=== PATIENT | male | born 1985 | race American Indian/Alaskan Native ===

== ENCOUNTER 2017-08-14 17:44 | Emergency (ER) | payer MEDICARE ==
--- NOTE | 2017-08-14 18:15 | Emergency Department Report ---
Chief Complaint: Psych Stated Complaint: SUICIDAL THOUGHTS Time Seen by Provider: 08/14/17 18:15 - HPI History of Present Illness: Patient with suicidal thoughts history of same with previous psych admissions. States he feels like hurting people occasionally hear voices that he wants to run himself into a wall. Denies any medical complaints: denies any chest pain headache fever abdominal pain complaints. States he's been compliant with his IM long-acting antipsychotic that he gets monthly. but it's not helping, Denies any alcohol or drug use. - Exam Vital Signs: Vital Signs 08/14/17 17:47 Temperature 98.3 F Pulse Rate 87 Respiratory 18 Rate Blood Pressure 132/83 O2 Sat by Pulse 100 Oximetry Physical Exam: Afebrile vital signs stable Neck supple abdomen soft nontender chest clear to auscultation. Psych poor insight and judgment +psychosis and si MSE screening note: Focused history and physical exam performed. Due to findings the following was ordered: Medical clearance labs ordered patient for psychiatric eval will be transferred to the main ED for further eval ED Disposition for MSE Condition: Stable Referrals: PRIMARY CARE [Primary Care Provider] - 3-5 Days
[2017-08-14 18:31] LABS: Hematocrit 46.3 % (35.5-45.6); Hemoglobin 15.7 gm/dl (11.8-15.2); Mean Corpuscular HGB Conc 34 % (32-34); Mean Corpuscular Hemoglobin 31 pg (28-32); Mean Corpuscular Volume 90 fl (84-94); Platelet Count 223 K/mm3 (140-440); Red Blood Count 5.13 M/mm3 (3.65-5.03); Red Cell Distribution Width 13.2 % (13.2-15.2); White Blood Count 8.8 K/mm3 (4.5-11.0)
[2017-08-14 18:43] LABS: Urine Drugs of Abuse Note Disclamer
[2017-08-14 18:54] LABS: Alanine Aminotransferase 18 units/L (7-56); Albumin 4.1 g/dL (3.9-5); Albumin/Globulin Ratio 1.2 %; Alkaline Phosphatase 66 units/L (35-129); Anion Gap 17 mmol/L; BUN/Creatinine Ratio 10; Blood Urea Nitrogen 7 mg/dL (9-20); Carbon Dioxide 26 mmol/L (22-30); Chloride 98.5 mmol/L (98-107); Glucose 103 mg/dL (75-100); Potassium 3.9 mmol/L (3.6-5.0); Sodium 138 mmol/L (137-145); Total Protein 7.4 g/dL (6.3-8.2)
[2017-08-14 19:11] LABS: Bacteria,Urine 1+ /HPF (Negative); Bilirubin,Urine NEG (Negative); Blood,Urine NEG (Negative); Ketones,Urine NEG (Negative); Leukocyte Esterase,Urine NEG (Negative); Nitrite,Urine NEG (Negative); Protein,Urine <15 mg/dL mg/dL (Negative); WBC,Urine < 1.0 /HPF (0.0-6.0)
[2017-08-14 19:23] LABS: Basophils % (Manual) 0 % (0.0-1.8); Blastocytes % (Manual) 0 %
[2017-08-14 19:24] LABS: Acanthocytes Rare; Anisocytosis RARE; Diff Status Complete; Platelet Estimate Consistent w Auto
--- NOTE | 2017-08-14 22:09 | Emergency Department Report ---
ED Psych HPI - General Chief Complaint: Psych Stated Complaint: SUICIDAL THOUGHTS Time Seen by Provider: 08/14/17 18:15 Source: patient Mode of arrival: Ambulatory Limitations: No Limitations - History of Present Illness Initial Comments: 32 YO MALE WITH H/O SCHIZOPHRENIA HER WITH C/O HOMICIDAL IDEATION AND SUICIDAL IDEATION FOR 2 OR MORE MONTHS. HE THINKS ONE OF HIS MEDICATION IS CAUSING HIS SYMPTOMS. PT ADMITS TO AUDITORY HALLUCINATIONS BUT NOT VISUAL HALLUCINATIONS. MD Complaint: suicidal ideation -: month(s) (2) Associated Psychiatric Symptoms: suicidal ideation, homicidal ideation, auditory hallucinations History of same: Yes Quality: constant Improves With: none Worsens With: none Treatments Prior to Arrival: none If Self Harm: admits thoughts of - Related Data Home Medications Medication Instructions Recorded Confirmed Last Taken Asenapine Maleate [Saphris] 5 mg SL QPM 08/01/14 08/01/14 07/31/14 Divalproex ER [Depakote ER] mg PO QHS 08/01/14 08/01/14 07/31/14 diphenhydrAMINE [Benadryl] 25 mg PO QHS 08/01/14 08/01/14 07/31/14 Previous Rx's Medication Instructions Recorded Last Taken Type ALPRAZolam [Xanax TAB] 1 mg PO TID PRN #10 tab 08/01/14 Unknown Rx Allergies Allergy/AdvReac Type Severity Reaction Status Date / Time Penicillins Allergy Unknown Verified 08/14/17 17:51 ED Review of Systems ROS: Stated complaint: SUICIDAL THOUGHTS Other details as noted in HPI Constitutional: denies: chills, fever Eyes: denies: eye pain, eye discharge, vision change ENT: denies: ear pain, throat pain Respiratory: denies: cough, shortness of breath, wheezing Cardiovascular: denies: chest pain, palpitations Endocrine: no symptoms reported Gastrointestinal: denies: abdominal pain, nausea, diarrhea Genitourinary: denies: urgency, dysuria Musculoskeletal: denies: back pain, joint swelling, arthralgia Skin: denies: rash, lesions Neurological: denies: headache, weakness, paresthesias Psychiatric: anxiety, depression, auditory hallucinations, homicidal thoughts Hematological/Lymphatic: denies: easy bleeding, easy bruising ED Past Medical Hx - Past Medical History Previous Medical History?: Yes Hx Psychiatric Treatment: Yes (schizophrenia, anxiety) - Family History Family history: hypertension - Social History Smoking Status: Current Every Day Smoker Substance Use Type: None - Medications Home Medications: Home Medications Medication Instructions Recorded Confirmed Last Taken Type ALPRAZolam [Xanax TAB] 1 mg PO TID PRN #10 tab 08/01/14 Unknown Rx Asenapine Maleate [Saphris] 5 mg SL QPM 08/01/14 08/01/14 07/31/14 History Divalproex ER [Depakote ER] mg PO QHS 08/01/14 08/01/14 07/31/14 History diphenhydrAMINE [Benadryl] 25 mg PO QHS 08/01/14 08/01/14 07/31/14 History ED Physical Exam - General Limitations: No Limitations General appearance: alert, in no apparent distress - Head Head exam: Present: atraumatic, normocephalic - Eye Eye exam: Present: normal appearance, EOMI - ENT ENT exam: Present: mucous membranes moist - Neck Neck exam: Present: normal inspection, full ROM - Respiratory Respiratory exam: Present: normal lung sounds bilaterally. Absent: respiratory distress, wheezes, rales - Cardiovascular Cardiovascular Exam: Present: regular rate, normal rhythm, normal heart sounds. Absent: systolic murmur, diastolic murmur, rubs, gallop - GI/Abdominal GI/Abdominal exam: Present: soft, normal bowel sounds. Absent: distended, tenderness, guarding - Rectal Rectal exam: Present: deferred - Extremities Exam Extremities exam: Present: normal inspection, full ROM - Back Exam Back exam: Present: normal inspection, full ROM - Neurological Exam Neurological exam: Present: alert, oriented X3, CN II-XII intact - Psychiatric Psychiatric exam: Present: normal affect, normal mood - Skin Skin exam: Present: warm, dry, intact, normal color. Absent: rash ED Course Vital Signs 08/14/17 08/14/17 17:47 23:18 Temperature 98.3 F 97.6 F Pulse Rate 87 62 Respiratory 18 16 Rate Blood Pressure 132/83 Blood Pressure 119/83 [Left] O2 Sat by Pulse 100 99 Oximetry ED Medical Decision Making - Lab Data Result diagrams: 08/14/17 18:19 08/14/17 18:19 Critical care attestation.: If time is entered above; I have spent that time in minutes in the direct care of this critically ill patient, excluding procedure time. ED Disposition Clinical Impression: Suicidal ideation, Homicidal ideation, Medical clearance for psychiatric admission Depression Qualifiers: Depression Type: unspecified Qualified Code(s): F32.9 - Major depressive disorder, single episode, unspecified Disposition: [id number] PSY HOSP/PSY UNIT Is pt being admited?: Yes Does the pt Need Aspirin: No Condition: Stable Referrals: PRIMARY CARE, [Primary Care Provider] - 3-5 Days Time of Disposition: 23:47 (PT HS BEEN ADMITTED TO [facility] )
[2017-08-14 23:32] VITALS: BP 119/83
== END 2017-08-15 02:35 ==
LOC: ED 17:44
DX: R45.851 Suicidal ideations (principal); R45.850 Homicidal ideations; F32.9 Major depressive disorder, single episode, unspecified; Z88.0 Allergy status to penicillin; F17.200 Nicotine dependence, unspecified, uncomplicated
CPT/HCPCS: 36415; 80053; 80307; 81001; 85007; 85025; 99285; G0480; 80320